=== PATIENT | female | born 1935 | race Caucasian/White ===

== ENCOUNTER → 2016-02-22 | Day surgery (SDC) | payer OTHER, MEDICARE ==
[2016-02-01 14:23] VITALS: BMI 35.0
[~2016-02-22] MED LIST: ALLO100T PO; AMLO-110 PO; AMR2 PO; ASPI325T45 PO; CALCTAB7 PO; CNT PO; GLIM2TAB2 PO; LEVO1TAB50 PO; LOSA50TA6 PO; LPT/40 PO; LSX20 PO; POTA-335 PO; PROB1CAP27 PO; SODIUM CHLORIDE 0.9% 500ML 500 ML IV ONE; TRMCR515 TOP; TRSOPS2 OPB
[2016-02-22 12:42] VITALS: TEMP 36.9
--- NOTE | 2016-02-22 12:58 | Endo History and Physical ---
History & Physical Date of Service: Feb 22, 2016. Chief Complaint: anal lesion Referring Physician: and Dr. Prescott History of Present Illness anal discharge, abnormal lavon palpation; bleeding Past Medical History Atrial Fibrillation, Diabetes, Arthritis, High Cholesterol, Heart Disease, Hypertension, Thyroid Disease, [place] Past Surgical History Hx Cardiac Surgery: Yes (HEART CATH-NO STENTS) Hx Internal Defibrillator: No Hx Pacemaker: No Hx Abdominal Surgery: Yes (TAHBSO, APPY, D&E, CHOLEY, UMBILICAL HERNIA REPAIR, SABI) Hx of Implantable Prosthesis: No Hx Post-Op Nausea and Vomiting: Yes Hx Cancer Surgery: No Hx Thoracic Surgery: Yes (BRONCHOSCOPY, LUNG BIOPSY) Hx Orthopedic: No Hx Urinary Tract Surgery: No Family History Colon CA Social History Smoking Status: Never Smoker Hx Substance Use: No Hx Alcohol Use: No Allergies Coded Allergies: Brimonidine (Verified Allergy, Unknown, BLEPHORITIS; EYELIDS SWELL, ) Shellfish (Verified Allergy, Unknown, GOUT, 02/01/16) Shrimp (Verified Allergy, Unknown, unknown, 02/22/16) Streptomycin (Verified Allergy, Unknown, FACIAL NUMBNESS, 02/01/16) Travoprost (Verified Allergy, Unknown, unknown, 02/22/16) stated by patient Lisinopril (Verified Adverse Reaction, Unknown, COUGHING, 02/01/16) Current Medications Reported Home Medications Medications Dose Route/Sig Max Daily Dose Days Date Category Triamcinolone Acetonide (Triamcinolone Acet) 45 Appln/15 Gm Cr 1 Appln TOP DIRECTED 30 02/01/16 Reported Trubiotics (Probiotic Product) 1 Cap Cap 1 Cap PO QAM 02/01/16 Reported Glimepiride 2 Mg Tab 1 Tab PO SUPPER 90 03/15/15 Reported Cozaar (Losartan Potassium) 50 Mg Tab 50 Mg PO QAM 03/15/15 Reported Norvasc (Amlodipine Besylate) 5 Mg Tab 5 Mg PO QAM 03/15/15 Reported Lipitor (Atorvastatin) 40 Mg Tab 40 Mg PO HS 03/15/15 Reported Aspirin 325 Mg Tab 325 Mg PO QPM 03/15/15 Reported Zyloprim (Allopurinol) 100 Mg Tab 200 Mg PO HS 10/17/12 Reported Trusopt 2% Oph Soln (Dorzolamide Hcl) 150 Drops/10 Ml Soln 1 Drop OPB BID 3/27/12 Reported Centrum * (Multivitamins/Minerals) 1 Tab Tab 1 Tab PO QPM 05/15/11 Reported Caltrate 600 Plus (Calcium Carbonate-Vitamin D W/) 1 Tab Tab 1 Tab PO BID 05/15/11 Reported Micro-K Ext Rel (Potassium Chloride) 20 Meq Cap 20 Meq PO NOON 05/15/11 Reported Lasix * (Furosemide) 20 Mg Tab 20 Mg PO QAM 05/15/11 Reported Amaryl * (Glimepiride) 2 Mg Tab 4 Mg PO QAM 05/15/11 Reported Levoxyl (Levothyroxine Sodium) 50 Mcg Tab 0.05 Mg PO QAM 05/15/11 Reported Vital Signs Weight (Kilograms): 77.73 Height (Feet): 4 Height (Inches): 10.5 Date Time Temp Pulse Resp B/P Pulse Ox O2 Delivery O2 Flow Rate FiO2 02/22/16 12:42 36.9 62 20 162/76 98 Room Air Physical Exam AAO x3 Nl s1s2 Lungsd CTA Abd soft NT/ND + BS - CCE Assessment and Plan colonoscopy
--- NOTE | 2016-02-22 13:36 | Discharge Instructions ---
Endoscopy Patient Instructions Date / Procedure(s) Performed Feb 22, 2016. Colonoscopy Allergy Information Coded Allergies: Brimonidine (Verified Allergy, Unknown, BLEPHORITIS; EYELIDS SWELL, ) Shrimp (Verified Allergy, Unknown, unknown, 02/22/16) Streptomycin (Verified Allergy, Unknown, FACIAL NUMBNESS, 02/01/16) Travoprost (Verified Allergy, Unknown, unknown, 02/22/16) stated by patient Lisinopril (Verified Adverse Reaction, Unknown, COUGHING, 02/01/16) Shellfish (Verified Adverse Reaction, Unknown, GOUT, 02/22/16) Discharge Date / Findings Feb 22, 2016. diverticulosis/ hemorrhoids Medication Instructions Stopped Medication(s): stopped MVI with minerals Saturday Restart Stopped Medication(s): Reported Home Medications Medications Dose Route/Sig Max Daily Dose Days Date Category Triamcinolone Acetonide (Triamcinolone Acet) 45 Appln/15 Gm Cr 1 Appln TOP DIRECTED 30 02/01/16 Reported Trubiotics (Probiotic Product) 1 Cap Cap 1 Cap PO QAM 02/01/16 Reported Glimepiride 2 Mg Tab 1 Tab PO SUPPER 90 03/15/15 Reported Cozaar (Losartan Potassium) 50 Mg Tab 50 Mg PO QAM 03/15/15 Reported Norvasc (Amlodipine Besylate) 5 Mg Tab 5 Mg PO QAM 03/15/15 Reported Lipitor (Atorvastatin) 40 Mg Tab 40 Mg PO HS 03/15/15 Reported Aspirin 325 Mg Tab 325 Mg PO QPM 03/15/15 Reported Zyloprim (Allopurinol) 100 Mg Tab 200 Mg PO HS 10/17/12 Reported Trusopt 2% Oph Soln (Dorzolamide Hcl) 150 Drops/10 Ml Soln 1 Drop OPB BID 05/15/11 Reported Centrum * (Multivitamins/Minerals) 1 Tab Tab 1 Tab PO QPM 05/15/11 Reported Caltrate 600 Plus (Calcium Carbonate-Vitamin D W/) 1 Tab Tab 1 Tab PO BID 05/15/11 Reported Micro-K Ext Rel (Potassium Chloride) 20 Meq Cap 20 Meq PO NOON 05/15/11 Reported Lasix * (Furosemide) 20 Mg Tab 20 Mg PO QAM 05/15/11 Reported Amaryl * (Glimepiride) 2 Mg Tab 4 Mg PO QAM 05/15/11 Reported Levoxyl (Levothyroxine Sodium) 50 Mcg Tab 0.05 Mg PO QAM 05/15/11 Reported Reported Home Medications Medications Dose Route/Sig Max Daily Dose Days Date Category Triamcinolone Acetonide (Triamcinolone Acet) 45 Appln/15 Gm Cr 1 Appln TOP DIRECTED 30 02/01/16 Reported Trubiotics (Probiotic Product) 1 Cap Cap 1 Cap PO QAM 02/01/16 Reported Glimepiride 2 Mg Tab 1 Tab PO SUPPER 90 03/15/15 Reported Cozaar (Losartan Potassium) 50 Mg Tab 50 Mg PO QAM 03/15/15 Reported Norvasc (Amlodipine Besylate) 5 Mg Tab 5 Mg PO QAM 03/15/15 Reported Lipitor (Atorvastatin) 40 Mg Tab 40 Mg PO HS 03/15/15 Reported Aspirin 325 Mg Tab 325 Mg PO QPM 03/15/15 Reported Zyloprim (Allopurinol) 100 Mg Tab 200 Mg PO HS 10/17/12 Reported Trusopt 2% Oph Soln (Dorzolamide Hcl) 150 Drops/10 Ml Soln 1 Drop OPB BID 05/15/11 Reported Centrum * (Multivitamins/Minerals) 1 Tab Tab 1 Tab PO QPM 05/15/11 Reported Caltrate 600 Plus (Calcium Carbonate-Vitamin D W/) 1 Tab Tab 1 Tab PO BID 05/15/11 Reported Micro-K Ext Rel (Potassium Chloride) 20 Meq Cap 20 Meq PO NOON 05/15/11 Reported Lasix * (Furosemide) 20 Mg Tab 20 Mg PO QAM 05/15/11 Reported Amaryl * (Glimepiride) 2 Mg Tab 4 Mg PO QAM 05/15/11 Reported Levoxyl (Levothyroxine Sodium) 50 Mcg Tab 0.05 Mg PO QAM 05/15/11 Reported Provider Instructions Activity Restrictions - No exercising or heavy lifting for 24 hours. - Do not drink alcohol the day of the procedure. - Do not drive a car or operate machinery until the day after the procedure. - Do not make any important decisions or sign important papers in 24 hours after the procedure. Following Day: - Return to full activity which may include returning to work/school. Diet Start your diet with liquids and light foods (jello, soup, juice, toast). Then eat your usual diet if not nauseated. Treatment For Common After Affects For mild abdominal pain, bloating, or excessive gas: - Rest - Eat lightly - Lie on right side Follow-Up Information Follow-up with and Dr. Prescott as scheduled Anesthesia Information What You Should Know You have had a procedure that required some medicine to reduce anxiety and discomfort. This treatment is called moderate sedation. After receiving the treatment, you may be sleepy, but you will be able to breathe on your own. The effects of the treatment may last for several hours. Follow these instructions along with Activity/Diet recommendations noted above: * Do NOT do anything where dizziness or clumsiness would be dangerous. * Rest quietly at home today, then you can be up and about tomorrow. * Have a responsible person stay with you the rest of today. * You may have had an I.V. today. If so, you may take the dressing off later today. Recommendations Call your doctor if: * Trouble breathing * Continuous vomiting for more than 24 hours * Temperature above 101 degrees * Severe abdominal pain or bloating * Pain not relieved by pain medicine ordered * There is increased drainage or redness from any incision * A large amount of rectal bleeding greater than 2-3 tablespoons. (If you had a polyp/s removed or have hemorrhoids, a small amount of blood - from the rectum is to be expected.) * You have any unanswered questions or concerns. IN THE EVENT OF A SERIOUS EMERGENCY, GO TO THE NEAREST EMERGENCY ROOM Your discharge instructions were prepared by provider Eliud Johnson. Patient Instructions Signature Page Casandra Perez Patient (or Guardian) Signature/Date: I have read and understand the instructions given to me by my caregivers. Caregiver/RN/Doctor Signature/Date: The above-named patient and/or guardian has received patient instructions on this date. + Original Patient Signature Page (only) stays with chart. Please make copy for patient.
--- NOTE | 2016-02-22 13:43 | GI REPORT ---
Procedure Date: 02/22/2016 1:03 PM Procedure: Colonoscopy Indications: Hematochezia Medicines: Propofol per Anesthesia Complications: No immediate complications. Estimated blood loss: None. Estimated Blood Loss: Estimated blood loss: none. Procedure: Pre-Anesthesia Assessment: - Prior to the procedure, a History and Physical was performed, and patient medications and allergies were reviewed. The patient's tolerance of previous anesthesia was also reviewed. The risks and benefits of the procedure and the sedation options and risks were discussed with the patient. All questions were answered, and informed consent was obtained. Prior Anticoagulants: The patient has taken no previous anticoagulant or antiplatelet agents. ASA Grade Assessment: III - A patient with severe systemic disease. After reviewing the risks and benefits, the patient was deemed in satisfactory condition to undergo the procedure. After I obtained informed consent, the scope was passed under direct vision. Throughout the procedure, the patient's blood pressure, pulse, and oxygen saturations were monitored continuously. The scope was introduced through the anus and advanced to the terminal ileum, with identification of the appendiceal orifice and IC valve. The colonoscopy was performed without difficulty. The patient tolerated the procedure well. The quality of the bowel preparation was good. Findings: The perianal and digital rectal examinations were normal. Pertinent negatives include normal sphincter tone, no palpable rectal lesions and no anal lesion or abnormality was detected. Many small-mouthed diverticula were found in the sigmoid colon and in the ascending colon. The terminal ileum appeared normal. The exam was otherwise without abnormality. Non-bleeding internal hemorrhoids were found during retroflexion and during perianal exam. The hemorrhoids were moderate, small and Grade II (internal hemorrhoids that prolapse but reduce spontaneously). No additional abnormalities were found on retroflexion. Impression: - Diverticulosis in the sigmoid colon and in the ascending colon. - The examined portion of the ileum was normal. - The examination was otherwise normal. - Non-bleeding internal hemorrhoids. - No specimens collected. Recommendation: - Discharge patient to home (ambulatory). - Resume previous diet. - Continue present medications. - Return to referring physician as previously scheduled. MD Eliud Rose MD 02/22/2016 1:42:24 PM This report has been signed electronically. Note Initiated On: 02/22/2016 1:03 PM
[2016-02-22 14:09] VITALS: BP 170/73; PULSE 59; O2SAT 96
--- NOTE | 2016-02-22 15:26 | Anesthesiology Progress Note ---
Anesthesia Post Op Note Date & Time Feb 22, 2016 at 15:25 Vital Signs Pain Intensity: 0 Vital Signs Past 12 Hours Date Time Temp Pulse Resp B/P Pulse Ox O2 Delivery O2 Flow Rate FiO2 02/22/16 14:09 59 20 170/73 96 Room Air 02/22/16 13:51 59 20 176/80 98 Room Air 02/22/16 13:36 60 20 136/65 98 Room Air 02/22/16 12:42 36.9 62 20 162/76 98 Room Air Notes Mental Status: alert / awake / arousable Nausea / Vomiting: adequately controlled Pain: adequately controlled Airway Patency, RR, SpO2: stable & adequate BP & HR: stable & adequate Hydration State: stable & adequate Anesthetic Complications: no major complications apparent
== END | disposition home or self-care (01) ==
LOC: C.GI 12:12
PROVIDERS: ATTEND Internal Medicine Gastroenterology
DX: K92.1 Melena (principal); K57.30 Diverticulosis of large intestine without perforation or abscess without bleeding; K64.1 Second degree hemorrhoids; Z80.0 Family history of malignant neoplasm of digestive organs; I48.91 Unspecified atrial fibrillation; I25.2 Old myocardial infarction; E11.9 Type 2 diabetes mellitus without complications; M19.90 Unspecified osteoarthritis, unspecified site; E78.00 Pure hypercholesterolemia, unspecified; I10 Essential (primary) hypertension; I51.9 Heart disease, unspecified; I34.1 Nonrheumatic mitral (valve) prolapse; E07.9 Disorder of thyroid, unspecified; Z98.890 Other specified postprocedural states; Z88.8 Allergy status to other drugs, medicaments and biological substances

== ENCOUNTER → 2016-05-22 | Outpatient (CLI) | payer OTHER, MEDICARE ==
[~2016-05-22] MED LIST changes: -SODIUM CHLORIDE 0.9% 500ML 500 ML IV ONE
--- NOTE | 2016-05-22 16:40 | MAMMOGRAPHY REPORT ---
BILATERAL DIGITAL SCREENING MAMMOGRAM WITH CAD: 05/22/2016 CLINICAL HISTORY: Routine screening. Patient has no complaints. TECHNIQUE: Bilateral CC and MLO views were obtained. Current study was also evaluated with a Comput er Aided Detection (CAD) system. COMPARISON: Comparison is made to exams dated: 05/19/2015 mammogram, 05/18/2014 mammogram, 05/12/2013 mammogram, 05/22/2012 ultrasound, 05/22/2012 mammogram, and 05/06/2012 mammogram - [facility]. BREAST COMPOSITION: There are scattered areas of fibroglandular density in both breasts. FINDINGS: An asymmetry in the superior posterior left breast on the MLO view appears very similar to the 05/18/2014 and 05/19/2015 mammograms. With 2 years of stability this is most likely benign. T here are mild vascular calcifications and scattered stable benign coarse calcifications bilaterally. No new suspicious mass, architectural distortion or cluster of microcalcifications is seen. IMPRESSION: ACR BI-RADS CATEGORY 1: NEGATIVE There is no mammographic evidence of malignancy. A 1 year screening mammogram is recommended. The p atient will receive written notification of the results. Approximately 10% of breast cancers are not detected with mammography. A negative mammographic repor t should not delay biopsy if a clinically suggestive mass is present. Carmen Watkins M.D. ay/:05/22/2016 15:46:48 Carpenter: Shavon HOWARD)([place]), [facility] letter sent: Normal 1/2 BI-RADS Code: ACR BI-RADS Category 1: Negative
== END | disposition home or self-care (01) ==
LOC: C.MAMM 10:01
PROVIDERS: ATTEND Obstetrics & Gynecology
DX: Z12.31 Encounter for screening mammogram for malignant neoplasm of breast (principal); K62.89 Other specified diseases of anus and rectum

== ENCOUNTER → 2016-05-22 | Outpatient (CLI) | payer OTHER, MEDICARE ==
[2016-05-22 14:17] LABS: BLOOD UREA NITROGEN 32 mg/dl (7-18)
== END | disposition home or self-care (01) ==
LOC: C.LABBC 11:05
PROVIDERS: ATTEND Colon & Rectal Surgery
DX: K62.89 Other specified diseases of anus and rectum (principal)

== ENCOUNTER → 2016-05-24 | Outpatient (CLI) | payer OTHER, MEDICARE ==
[~2016-05-24] MED LIST changes: +GADAVIST IV PRN
--- NOTE | 2016-05-24 12:29 | DIAGNOSTIC IMAGING REPORT ---
MRI pelvis PELVIS COMBO CLINICAL HISTORY: CYST OF PERIANAL AREA TECHNIQUE: Multiaxial MRI acquisition COMPARISON STUDY: None FINDINGS: Signal characteristics of the bowel appear unremarkable. The perirectal and perianal regions show no evidence for abnormal collection or mass. There is no evidence for abnormal postcontrast enhancement. Bladder shows a slight wall thickening possibly secondary to its contracted state. There is no evidence for pelvic or inguinal adenopathy. Signal characteristics of the osseous structures are unremarkable. There is no significant bone marrow replacing process. Sacroiliac joints appear to be remarkable only for minimal degenerative change. IMPRESSION: 1. No acute process of the pelvis. 2. Study specifically negative for perirectal or perianal collection or mass. Electronically signed by: Armando Ordonez M.D. 05/24/2016 12:27 PM Dictated Date/Time: 05/24/2016 12:21 PM
== END | disposition home or self-care (01) ==
LOC: C.MRIBC 10:41
PROVIDERS: ATTEND Colon & Rectal Surgery
DX: K62.89 Other specified diseases of anus and rectum (principal)

== ENCOUNTER → 2016-06-05 | Outpatient (CLI) | payer OTHER, MEDICARE ==
[~2016-06-05] MED LIST changes: -GADAVIST IV PRN
[2016-06-05 10:57] LABS: ESTIMATED AVERAGE GLUCOSE 134 mg/dl; HA1C FLAG Normal (Normal)
[2016-06-05 11:23] LABS: ALT/SGPT 33 U/L (12-78); AST/SGOT 19 U/L (15-37); BLOOD UREA NITROGEN 23 mg/dl (7-18); BUN/CREATININE RATIO 30.7 (10-20); CALCIUM 8.6 mg/dl (8.5-10.1); CARBON DIOXIDE 29 mmol/L (21-32); CHLORIDE 107 mmol/L (98-107); CREATININE 0.74 mg/dl (0.60-1.20); GLUCOSE 131 mg/dl (70-99); POTASSIUM 4.1 mmol/L (3.5-5.1); SODIUM 142 mmol/L (136-145)
[2016-06-05 11:26] LABS: ALB/GLOB RATIO 1.3 (0.9-2); ALKALINE PHOSPHATASE 91 U/L (45-117); CHOLESTEROL 148 mg/dl (0-200); HDL CHOLESTEROL 49 mg/dl; LDL CHOLESTEROL CALCULATED 63 mg/dl; TRIGLYCERIDES 180 mg/dl (0-150); VERY LOW DENSITY LIPOPROT CALC 36 mg/dl
== END | disposition home or self-care (01) ==
LOC: C.LABBC 08:05
PROVIDERS: ATTEND Internal Medicine Pulmonary Disease
DX: I10 Essential (primary) hypertension (principal); E11.9 Type 2 diabetes mellitus without complications; E03.9 Hypothyroidism, unspecified; E78.5 Hyperlipidemia, unspecified; M10.9 Gout, unspecified